=== PATIENT | female | born 1990 | race Caucasian/White ===

== ENCOUNTER 2023-09-28 07:30 | Inpatient (IN) ==
[2023-09-28] MEDS ORDERED: LIDOCAINE 1% LOCAL 20 ML VIAL INFIL PRN (08:23)
[2023-09-28] MEDS ORDERED: OXYTOCIN 30 UNITS/NSS 30 UNITS/500 ML BAG IV PRN ×2 (08:23→18:09)
--- NOTE | 2023-09-28 08:23 | History & Physical Report ---
Date of Service September 28, 2023 Assessment & Plan (1) Encounter for induction of labor: Plan L&D order set placed, including, CBC w/out diff, blood bank hold, IV fluids (LR, 125 mL/hr), and Oxytocin (0.06 U/hr for labor augmentation), and Oxytocin, PRN (20 U/hr, for bleeding). External heart monitor and external tocodynamometer already placed. Patient will consider AROM, balloon catheter, epidural as she progresses. Admission and Anticipated Discharge Date Admission Date: September 28, 2023 History of Present Illness Chief Complaint: induction of labor Primary Care Provider: Malou Archuleta , 41 weeks confirmed via (ultrasound vs. LMP). Here for Induction of Labor. Complications with this include nothing beyond minor concerns of mild swelling and a pruritic, urticarial rash over lower abdomen (likely PUPP rash). Has been attending OB appointments regularly. Currently taking Probiotic (bacillus coagulans-inulin), Complete vitamins, ferrous sulfate, and famotidine. Contractions: yes Fluid or Blood loss: minor blood loss Movement: active Labs - Blood type, B+ - Antibody screen, neg - Hgb, pending - Hct, pending - Wbc, pending - Plt, pending - Rubella, immune - VDRL/RPR, non-reactive - Gonorrhea, not detected - Chlamydia, not detected - HIV, negative and non-reactive - HbSAg, negative - GBS, negative - Glucose tolerance x 2, 107 Allergies Allergy/AdvReac Type Severity Reaction Status Date / Time gluten AdvReac Gastrointestinal Verified 09/27/23 10:32 Upset Home Medications Medication Instructions Recorded Confirmed Type ferrous sulfate 325 mg (65 mg 325 mg PO DAILY 07/20/23 09/28/23 History iron) tablet (Feosol) lactobacillus combination no.4 3 3,000 mmu cells PO DAILY 09/28/23 09/28/23 History billion cell capsule (Probiotic) vits no.124-ferrous fum 1 tab PO DAILY 09/28/23 09/28/23 History 27 mg iron-folic acid 800 mcg tablet ( Vitamin) Past Med/Surg History Problem List (Updated 09/28/23 @ 08:55 by Darci Reich MD) Encounter for induction of labor Encounter for supervision of normal in multigravida Cervical cancer screening Medical History (Updated 09/28/23 @ 08:55 by Darci Reich MD) Spontaneous vaginal delivery Post term over 40 weeks Celiac disease Depression History of chicken pox Eczema Ovarian cyst Surgical History S/P wisdom tooth extraction Family History Father Skin cancer Hypertension Grandmother (Maternal) Heart disease Grandfather (Maternal) Heart disease Mother Hypertension Aunt Ovarian cancer Denies family history of Breast cancer Colorectal cancer Social History (Updated 09/28/23 @ 08:08 by Jessica Galvan, RN) Smoking Status: Never smoker Do You Dip or Chew Tobacco: No; Hx Alcohol Use: No Hx Substance Use: No Preferred Language: Persian Communication Ability: Effective Visual Impairment: No Limitations Hearing Ability: Normal Branch Officer Required: No Beliefs That Will Affect Care: None marital status: marital status details: Jason Bueno [phone] Current Living Situation: Spouse and Family Current Living Situation Comment: lives with , daughter, dog current occupational status: employed 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 Other Information That Helps Us Care for You: No Feels Safe at Home: Yes Safety Concerns: Feels Safe At This Time Childhood Exposure to Second-Hand Smoke: No Diet: gluten free caffeine: Yes (1 coffee/day) Dental Care, Regularly: Yes Gender Identity: Female Assistive Devices: None Review of Systems Constitutional: + fatigue (minor fatigue); no fever, no chills and no body aches Eyes: no diplopia, not seeing flashes and no worsening vision Ear, Nose, Mouth, Throat: + sore throat; no nasal congestion and n o nasal discharge Respiratory: no cough, no chest congestion and no dyspnea Cardiovascular: no chest pain and no palpitations Gastrointestinal: + abdominal pain (normal cramping), + na usea and + change in bowel habits (going more frequently); no vomiting, no constipation and no diarrhea/loose stools Genitourinary: no dysuria, no urinary frequency (nothing more than 3rd trimester steady increase in freq) and no urinary urgency Integumentary: + rash (lower abdominal rash) Neurologic: no tingling, no numbness and no headache(s) Physical Exam Constitutional: WD/WN, vitals as above Respiratory: normal respiratory effort, lungs clear to auscultation Cardiovascular: RRR, no murmur, no edema Extremities: normal capillary refill; no calf tenderness Gastrointestinal (Abdomen): Inspection/Auscultation: normal bowel sounds and + significant pannus (gravid stomach); + abdomen abnormal to inspection (urticarial rash over lower abdomen) external heart monitor and external tocodynamometer placed over gravid uterus Skin: + rash Pruritic rash resembling a PUPP-type rash on entire lower abdomen. Psychiatric: A+Ox3, euthymic affect Genitourinary: OB Exam Monitor Tracing: + external FHT monitor used, + external uterine monitor used (contractions approx 6 min apart), + category I and + normal FHT variability Cervical exam: 3 cm, 75% effaced, -2 station, soft and posterior Results & Data Results & Data Vital Signs (Past 12 Hours) Vital Signs Temp Pulse Resp BP 09/28/23 07:40 36.5 C 70 20 120/65 Supervising Physician Co-Signing Physician Notes Resident Physician Supervision Note: I interviewed and examined the patient. Discussed with Dr. Reich and agree with findings and plan as documented in the note. Any exceptions or clarifications are listed here: who present for postdates iol. essentially uncomplicated. cx favorable. Plan pitocin, arom when indicated. epidural on demand. gbs negative. fetus category one. anticipate . Documented By: Nicky Foley MD, FACOG
--- NOTE | 2023-09-28 08:36 | History & Physical Report ---
Date of Service September 28, 2023 Assessment & Plan Admission and Anticipated Discharge Date Admission Date: September 28, 2023 History of Present Illness Chief Complaint: iol Primary Care Provider: Malou Brittsue Patient is a 32yowf GP who presents for 41 week iol. Allergies Allergy/AdvReac Type Severity Reaction Status Date / Time gluten AdvReac Gastrointestinal Verified 09/27/23 10:32 Upset Home Medications Medication Instructions Recorded Confirmed Type ferrous sulfate 325 mg (65 mg 325 mg PO DAILY 07/20/23 09/28/23 History iron) tablet (Feosol) lactobacillus combination no.4 3 3,000 mmu cells PO DAILY 09/28/23 09/28/23 History billion cell capsule (Probiotic) vits no.124-ferrous fum 1 tab PO DAILY 09/28/23 09/28/23 History 27 mg iron-folic acid 800 mcg tablet ( Vitamin) Patient History Medical History Spontaneous vaginal delivery Post term over 40 weeks Celiac disease Depression History of chicken pox Eczema Ovarian cyst Surgical History S/P wisdom tooth extraction Family History Father Skin cancer Hypertension Grandmother (Maternal) Heart disease Grandfather (Maternal) Heart disease Mother Hypertension Aunt Ovarian cancer Denies family history of Breast cancer Colorectal cancer Social History (Updated 09/28/23 @ 08:08 by Jessica Galvan RN) Smoking Status: Never smoker Do You Dip or Chew Tobacco: No; Hx Alcohol Use: No Hx Substance Use: No Preferred Language: Thai Communication Ability: Effective Visual Impairment: No Limitations Hearing Ability: Normal Internist Medical Doctor Md Required: No Beliefs That Will Affect Care: None marital status: marital status details: Jason Bueno ([phone] Current Living Situation: Spouse and Family Current Living Situation Comment: lives with , daughter, dog current occupational status: employed 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
[2023-09-28] MEDS: LACTATED RINGER'S 1,000 ML IV PRN (08:57)
[2023-09-28 09:02] LABS: Hematocrit (blood only) 34.6 % (37.0-47.0); Hemoglobin 11.3 g/dl (12.0-16.0); Mean Corpuscular Hgb Conc 32.7 g/dL (32.0-36.0); Mean Corpuscular Volume 82.8 fL (80.0-100.0); Mean Platelet Volume 10.8 fL (9.4-12.4); Platelet Count 178 K/uL (130-400); RDW Coefficient of Variation 15.5 % (11.5-14.5); RDW Standard Deviation 46.2 fL (36.4-46.3); Red Blood Count 4.18 M/uL (4.20-5.40); White Blood Count 9.01 K/ul (4.8-10.8)
[2023-09-28] MEDS: OXYTOCIN 30 UNITS/NSS 30 UNITS/500 ML BAG IV PRN (09:05)
[2023-09-28] MEDS ORDERED: ROPIVACAINE 0.5% PF 5 MG/ML 20 ML VIAL EPI PRN (13:36)
[2023-09-28] MEDS ORDERED: SODIUM CHLORIDE 0.9% PF INJ 10 ML VIAL EPI PRN (13:36)
[2023-09-28] MEDS ORDERED: NALOXONE HCL 1 MG in SODIUM CHLORIDE 0.9% 1,000 ML IV PRN (13:36)
[2023-09-28] MEDS ORDERED: NALBUPHINE HCL 5 MG in SYRINGE 0 ML IV PRN (13:36)
[2023-09-28] MEDS ORDERED: diphenhydrAMINE 50 MG/ML VIAL IV PRN (13:36)
[2023-09-28] MEDS ORDERED: NALOXONE HCL 0.4 MG/1 ML VIAL/CARP IV PRN (13:36)
[2023-09-28] MEDS ORDERED: BUPIVACAINE 0.25% PF 30 ML VIAL EPI PRN (13:36)
[2023-09-28] MEDS ORDERED: LIDOCAINE 2% MPF LOCAL 5 ML VIAL EPI PRN (13:36)
[2023-09-28] MEDS ORDERED: PROMETHAZINE HCL 6.25 MG in SODIUM CHLORIDE 0.9% 50 ML IV PRN (13:36)
[2023-09-28] MEDS ORDERED: fentANYL 2 MCG/ML BUPIVacaine 0.125%-NSS 100ML BAG EPI PRN (13:36)
[2023-09-28] MEDS ORDERED: ONDANSETRON INJ 2 MG/ML 2 ML VIAL IV PRN (13:36)
[2023-09-28] MEDS ORDERED: ePHEDrine sulfate 50 MG/ML AMP IV PRN (13:36)
[2023-09-28] MEDS ORDERED: fentaNYL citrate PF 100 MCG/2 ML VIAL EPI PRN (13:36)
[2023-09-28] MEDS: fentANYL 2 MCG/ML BUPIVacaine 0.125%-NSS 100ML BAG ONE (13:54)
[2023-09-28] MEDS: SODIUM CHLORIDE 0.9% PF INJ 10 ML VIAL ONE (13:58)
[2023-09-28] MEDS: BUPIVACAINE 0.25% PF 30 ML VIAL ONE (13:59)
[2023-09-28] MEDS: LIDOCAINE 2%/EPINEPHRINE 1:200,000 20 ML PF ONE (13:59)
[2023-09-28] MEDS: fentaNYL citrate PF 100 MCG/2 ML VIAL ONE (14:42)
--- NOTE | 2023-09-28 14:43 | Labor Progress Brief Note ---
Date of Service September 28, 2023 Subjective some pressure, epidural starting to work Assessment & Plan (1) Encounter for induction of labor: Plan: 32 yo at 41 wga admitted for late term iol VSS Fetus cat 1 Labor - good progress, suspecte srom as only small bag palpated and arom. Continue induction GBS neg epidural in place Admission and Anticipated Discharge Date Admission Date: September 28, 2023 Physical Exam Genitourinary: Manual OB Exam: + cervical dilation 5 cm, + cervical effacement 80%, + station -2 and + amniotic fluid (suspect srom, small forebag ruptured) OB Exam Monitor Tracing: + external FHT monitor used, + external uterine monitor used (q3) and + category I (120/mod/+accel/-decel) Results & Data Vital Signs (Past 12 Hours) Vital Signs Temp Pulse Resp BP Pulse Ox 09/28/23 14:38 100 09/28/23 14:38 72 09/28/23 14:38 117/63 09/28/23 14:33 100 09/28/23 14:33 72 09/28/23 14:28 100 09/28/23 14:28 73 09/28/23 14:23 100 09/28/23 14:23 77 09/28/23 14:23 93/53 L 09/28/23 14:20 98.4 F 20 09/28/23 14:18 100 09/28/23 14:18 81 09/28/23 14:13 100 09/28/23 14:13 93 H 09/28/23 14:08 100 09/28/23 14:08 87 09/28/23 14:08 90 09/28/23 14:08 112/57 L 09/28/23 14:06 106 H 09/28/23 14:06 137/63 09/28/23 14:04 96 H 09/28/23 14:04 99/63 L 09/28/23 14:03 100 09/28/23 14:03 104 H 09/28/23 14:02 73 09/28/23 14:02 98/53 L 09/28/23 14:00 71 09/28/23 14:00 101/55 L 09/28/23 13:58 100 09/28/23 13:58 77 09/28/23 13:58 69 09/28/23 13:58 100/58 L 09/28/23 13:56 83 09/28/23 13:56 100/55 L 09/28/23 13:54 71 09/28/23 13:54 96/54 L 09/28/23 13:53 100 09/28/23 13:53 73 09/28/23 13:52 82 09/28/23 13:52 100/54 L 09/28/23 13:51 74 09/28/23 13:51 92/50 L 09/28/23 13:50 73 09/28/23 13:50 98/49 L 09/28/23 13:48 97 09/28/23 13:48 77 09/28/23 13:43 100 09/28/23 13:43 90 09/28/23 13:16 65 09/28/23 13:16 108/69 09/28/23 12:14 80 09/28/23 12:14 112/69 09/28/23 12:03 98.8 F 20 09/28/23 11:14 71 09/28/23 11:14 112/67 09/28/23 10:15 71 09/28/23 10:15 20 106/62 09/28/23 10:00 76 09/28/23 10:00 16 108/61 09/28/23 09:44 86 09/28/23 09:44 106/58 L 09/28/23 09:29 88 09/28/23 09:29 104/56 L 09/28/23 09:14 73 09/28/23 09:14 113/58 L 09/28/23 07:40 97.7 F 70 20 120/65 Coding Level of Care Code None Diagnoses Encounter for induction of labor Z34.90
[2023-09-28] MEDS ORDERED: HYDROCORTISONE ACETATE 25 MG SUPP PR PRN (18:09)
[2023-09-28] MEDS ORDERED: ACETAMINOPHEN 325 MG TAB PO PRN (18:09)
--- NOTE | 2023-09-28 18:14 | Anesthesiology Progress Note ---
Date of Service September 28, 2023 Anesthesia Post Procedure Vital Signs Vital Signs: Temp Pulse Resp BP Pulse Ox 09/28/23 18:08 100 09/28/23 18:08 91 H 09/28/23 18:03 99 09/28/23 18:03 90 09/28/23 17:58 99 09/28/23 17:58 87 09/28/23 17:53 99 09/28/23 17:53 129 H 09/28/23 17:51 89 L 09/28/23 17:51 88 09/28/23 17:48 100 09/28/23 17:48 92 H 09/28/23 17:43 100 09/28/23 17:43 88 09/28/23 17:40 92 09/28/23 17:40 122 H 09/28/23 17:40 129/62 09/28/23 17:38 100 09/28/23 17:38 105 H 09/28/23 17:33 100 09/28/23 17:33 70 09/28/23 17:28 100 09/28/23 17:28 69 09/28/23 17:25 71 09/28/23 17:25 106/66 09/28/23 17:23 100 09/28/23 17:23 68 09/28/23 17:18 97 09/28/23 17:18 74 09/28/23 17:13 100 09/28/23 17:13 67 09/28/23 17:08 99 09/28/23 17:08 71 09/28/23 17:08 111/63 09/28/23 17:03 100 09/28/23 17:03 84 09/28/23 17:03 91 09/28/23 17:03 80 09/28/23 16:58 100 09/28/23 16:58 72 09/28/23 16:53 100 09/28/23 16:53 67 09/28/23 16:53 70 09/28/23 16:53 93/52 L 09/28/23 16:48 100 09/28/23 16:48 73 09/28/23 16:43 100 09/28/23 16:43 73 09/28/23 16:39 71 09/28/23 16:39 92/54 L 09/28/23 16:38 100 09/28/23 16:38 74 05/17/24 16:33 99 09/28/23 16:33 71 09/28/23 16:28 99 09/28/23 16:28 72 09/28/23 16:23 100 09/28/23 16:23 75 09/28/23 16:23 95/52 L 09/28/23 16:18 100 09/28/23 16:18 81 09/28/23 16:16 36.7 C 09/28/23 16:13 99 09/28/23 16:13 73 09/28/23 16:09 87 L 09/28/23 16:09 80 09/28/23 16:08 99 09/28/23 16:08 82 09/28/23 16:03 99 09/28/23 16:03 123 H 09/28/23 15:58 93 09/28/23 15:58 94 H 09/28/23 15:53 98 09/28/23 15:53 88 09/28/23 15:53 94 09/28/23 15:53 91 H 09/28/23 15:48 97 09/28/23 15:48 98 H 09/28/23 15:48 88 L 09/28/23 15:48 85 09/28/23 15:43 99 09/28/23 15:43 81 09/28/23 15:42 91 09/28/23 15:42 98 H 09/28/23 15:38 82 L 09/28/23 15:38 95 H 09/28/23 15:36 83 L 09/28/23 15:36 106 H 09/28/23 15:33 99 09/28/23 15:33 95 H 09/28/23 15:28 100 09/28/23 15:28 76 09/28/23 15:24 87 09/28/23 15:24 124/59 L 09/28/23 15:23 100 09/28/23 15:23 78 09/28/23 15:18 100 09/28/23 15:18 76 09/28/23 15:17 36.6 C 20 09/28/23 15:13 100 09/28/23 15:13 85 09/28/23 15:09 80 09/28/23 15:09 105/67 09/28/23 15:08 100 09/28/23 15:08 81 09/28/23 15:03 100 09/28/23 15:03 82 09/28/23 14:58 100 09/28/23 14:58 72 09/28/23 14:53 100 09/28/23 14:53 78 09/28/23 14:53 122/63 09/28/23 14:48 100 09/28/23 14:48 82 09/28/23 14:43 100 09/28/23 14:43 71 09/28/23 14:38 100 09/28/23 14:38 72 09/28/23 14:38 117/63 09/28/23 14:33 100 09/28/23 14:33 72 09/28/23 14:28 100 09/28/23 14:28 73 09/28/23 14:23 100 09/28/23 14:23 77 09/28/23 14:23 93/53 L 09/28/23 14:20 36.9 C 20 09/28/23 14:18 100 09/28/23 14:18 81 09/28/23 14:13 100 09/28/23 14:13 93 H 09/28/23 14:08 100 09/28/23 14:08 87 09/28/23 14:08 90 09/28/23 14:08 112/57 L 09/28/23 14:06 106 H 09/28/23 14:06 137/63 09/28/23 14:04 96 H 09/28/23 14:04 99/63 L 09/28/23 14:03 100 09/28/23 14:03 104 H 09/28/23 14:02 73 09/28/23 14:02 98/53 L 09/28/23 14:00 71 09/28/23 14:00 101/55 L 09/28/23 13:58 100 09/28/23 13:58 77 09/28/23 13:58 69 09/28/23 13:58 100/58 L 09/28/23 13:56 83 09/28/23 13:56 100/55 L 09/28/23 13:54 71 09/28/23 13:54 96/54 L 09/28/23 13:53 100 09/28/23 13:53 73 09/28/23 13:52 82 09/28/23 13:52 100/54 L 09/28/23 13:51 74 09/28/23 13:51 92/50 L 09/28/23 13:50 73 09/28/23 13:50 98/49 L 09/28/23 13:48 97 09/28/23 13:48 77 09/28/23 13:43 100 09/28/23 13:43 90 09/28/23 13:16 65 09/28/23 13:16 108/69 09/28/23 12:14 80 09/28/23 12:14 112/69 09/28/23 12:03 37.1 C 20 09/28/23 11:14 71 09/28/23 11:14 112/67 09/28/23 10:15 71 09/28/23 10:15 20 106/62 09/28/23 10:00 76 09/28/23 10:00 16 108/61 09/28/23 09:44 86 09/28/23 09:44 106/58 L 09/28/23 09:29 88 09/28/23 09:29 104/56 L 09/28/23 09:14 73 09/28/23 09:14 113/58 L 09/28/23 07:40 36.5 C 70 20 120/65 Pain Intensity Abdomen: Pain Intensity: 3 Transfer of Care Handoff Completed per policy Notes Mental Status: alert / awake / arousable and participated in evaluation Patient Amnestic to Procedure: No Nausea / Vomiting: adequately controlled Pain: adequately controlled Airway Patency, RR, SpO2: stable & adequate BP & HR: stable & adequate Hydration State: stable & adequate Neuraxial Anesthesia: was administered and sensory block is resolving Anesthetic Complications: no major complications apparent and Pt Satisfied with anesthetic care
--- NOTE | 2023-09-28 18:15 | Delivery Summary ---
Vaginal Delivery Summary Date of Service September 28, 2023 Vaginal Delivery Summary and 2nd Degree LAC PREOPERATIVE DIAGNOSIS: 1. Single intrauterine at 41 wga 2. Late term IOL POSTOPERATIVE DIAGNOSIS: 1. Single intrauterine at 41 wga 2. Late term IOL 3. Delivered PROCEDURE: 1. Normal spontaneous vaginal delivery. SURGEON: Kerry Simon MD ANESTHESIA: Epidural. QUANTITATIVE BLOOD LOSS: 102 mL FLUIDS: Continuous LR. URINE OUTPUT: Not measured COMPLICATIONS: None. CONDITION: Stable. INDICATIONS: 32 yo at 41 wga presented for late term IOL. She was 3cm on arrival and started on pitocin. She received an epidural for pain control. She was suspected to srom but a forebag was artifically ruptured and she continued to progress to complete and desired to push. FINDINGS: A viable male , weight pending with Apgars of 8 and 9 at 1 and 5 minutes respectively. SPECIMEN: Cord blood OPERATIVE REPORT: The patient progressed to 10 cm, 100% effaced and +2 station, pushed over intact perineum with anesthesia to deliver a viable male infant, weight and Apgars as above. Head of delivered in ADAMS position. No nuchal cord was present. Body and shoulders were delivered without difficulty. was delivered to maternal abdomen and nursing staff. Delayed cord clamping was performed for 60 seconds. Cord was clamped and cut. Cord blood was obtained. Placenta delivered spontaneously intact with 3-vessel cord. IV oxytocin and f undal massage were given for excellent hemostasis. Vagina, cervix, perineum, and placenta were inspected. A second degree laceration was noted and repaired with 3-0 vicryl. There was excellent hemostasis. Sponge and needle counts correct x2. No sponges were left behind. Mother and stable in immediate period. [facility] [place] [facility] [place] Vaginal Delivery Codes: 77793 global code for the antepartum, delivery, and post- Delivery Type Details: and 2nd Degree LAC
[2023-09-28] MEDS: BUPIVACAINE 0.25% PF 30 ML VIAL EPI STA (19:24)
[2023-09-28] MEDS: fentaNYL citrate PF 100 MCG/2 ML VIAL EPI STA (19:24)
[2023-09-28] MEDS: ePHEDrine sulfate 50 MG/ML AMP ONE (19:24)
[2023-09-28] MEDS: SODIUM CHLORIDE 0.9% PF INJ 10 ML VIAL EPI STA (19:25)
[2023-09-28] MEDS: LIDOCAINE 2%/EPINEPHRINE 1:200,000 20 ML PF EPI STA (19:25)
[2023-09-28] MEDS: DIPHTHER/TETAN/PERTUS Vaccine (Tdap, Adol/Adult) 0.5mL IM ONE (19:26)
[2023-09-28] MEDS: BENZOCAINE 20% SPRY 85 APPLN/85 GM CAN EXT PRN (20:02)
[2023-09-28] MEDS: IBUPROFEN 600 MG TAB PO PRN (20:03)
[2023-09-28] MEDS: DOCUSATE SODIUM 100 MG CAP PO SCH (20:03)
[2023-09-28] MEDS ORDERED: Nursing to Pharmacy Communication SCH (21:00)
[2023-09-28] MEDS: IBUPROFEN 200 MG/10 ML UDC PO PRN (21:48)
--- NOTE | 2023-09-29 06:09 | Obstetrical Progress Note ---
Date of Service <Darci Reich MD - Last Filed: 09/29/23 07:32> September 29, 2023 Assessment & Plan <Darci Reich MD - Last Filed: 09/29/23 07:32> (1) (normal spontaneous vaginal delivery): Plan 32 yo , status post on 09/28/23. - Pt doing well clinically. Feels well today. Eating well, unable to void w/out Pierce, ambulating well. Pain well controlled with PRN pain meds. Will remove Pierce again later today to see if pt can void independently. - Routine care -- OOB, ambulation, diet progression as tolerated Vital Signs reviewed and WNL, (Tmax at 36.9), with exception of slight tachyca rdia few hours after delivery (HR as high as 100). Clobetasol propionate cream ordered for pt's PUPPP rash and prescribed for 2 wks as outpt (1 karen, BID, 2 wks, PRN) Hemoglobin Reviewed. 11.3 (09/27). Blood Type: B+, GBS-, Rubella Immune. Encourage ambulation, monitor and control pain with Motrin PRN, resume regular diet, monitor lochia. Breast feeding encouraged. After discharge will have 6 week follow-up with Dr. Simon. Pt counselled on discharge instructions, in the event they're planning on going home today. <Kerry Simon MD - Last Filed: 09/29/23 09:21> (1) (normal spontaneous vaginal delivery): Subjective <Darci Reich MD - Last Filed: 09/29/23 07:32> Ambulation: ambulating normally Voiding: pierce catheter in place Passing Gas:: Yes Diet Tolerance:: regular diet Lochia:: Moderate Feeding Type:: bottle feeding Current Pain Level(1-10): 4 (cramping pain in abdomen) Constitutional: + fatigue (minor fatigue); no fever, no chills or no body aches Eyes: no diplopia, no seeing flashes or no worsening vision Ear, Nose, Mouth, Throat: + sore throat; no nasal congestion or no nasal discharge Respiratory: no cough, no chest congestion or no dyspnea Cardiovascular: no chest pain or no palpitations Gastrointestinal: + abdominal pain (normal cramping); no nausea, no vomiting, no constipation or no diarrhea/loose stools Genitourinary (female): no dysuria, no urinary frequency (nothing more than 3rd trimester steady increase in freq) or no urinary urgency Integumentary: + rash (lower abdominal rash) Neurologic: no tingling, no numbness or no headache(s) Physical Exam <Darci Reich MD - Last Filed: 09/29/23 07:32> Constitutional WD/WN, vitals as above Respiratory normal respiratory effort, lungs clear to auscultation Cardiovascular RRR, no murmur, no edema Extremities: normal capillary refill; no calf tenderness Gastrointestinal (Abdomen) Inspection/Auscultation: normal bowel sounds and + significant pannus (gravid stomach); + abdomen abnormal to inspection (urticarial rash over lower abdomen) Skin + rash Psychiatric A+Ox3, euthymic affect Results & Data <Darci Reich MD - Last Filed: 09/29/23 07:32> Vital Signs (Past 12 Hours) Vital Signs Temp Pulse Pulse Resp BP BP Pulse Ox 09/29/23 03:20 36.8 C 68 18 111/72 99 09/28/23 23:31 36.6 C 71 18 100/65 97 09/28/23 21:00 36.9 C 90 18 121/72 98 09/28/23 20:24 100 H 09/28/23 20:24 127/62 09/28/23 19:53 94 H 09/28/23 19:53 104/74 09/28/23 19:38 85 09/28/23 19:38 110/70 09/28/23 19:23 74 09/28/23 19:23 104/62 09/28/23 19:08 73 09/28/23 19:08 113/60 09/28/23 18:53 68 09/28/23 18:53 105/59 L 09/28/23 18:50 20 09/28/23 18:41 93 09/28/23 18:41 76 09/28/23 18:38 98 09/28/23 18:38 76 09/28/23 18:38 77 09/28/23 18:38 120/56 L 09/28/23 18:35 20 09/28/23 18:33 100 09/28/23 18:33 70 09/28/23 18:28 100 09/28/23 18:28 76 09/28/23 18:23 100 09/28/23 18:23 86 09/28/23 18:23 120/60 09/28/23 18:20 36.9 C 20 09/28/23 18:20 84 09/28/23 18:20 117/58 L 09/28/23 18:18 100 09/28/23 18:18 83 09/28/23 18:13 94 09/28/23 18:13 98 H O2 Del Method 09/29/23 03:20 Room Air 09/28/23 23:31 Room Air 09/28/23 21:00 Room Air 09/28/23 20:24 09/28/23 20:24 09/28/23 19:53 09/28/23 19:53 09/28/23 19:38 09/28/23 19:38 09/28/23 19:23 09/28/23 19:23 09/28/23 19:08 09/28/23 19:08 09/28/23 18:53 09/28/23 18:53 09/28/23 18:50 09/28/23 18:41 09/28/23 18:41 09/28/23 18:38 09/28/23 18:38 09/28/23 18:38 09/28/23 18:38 09/28/23 18:35 09/28/23 18:33 09/28/23 18:33 09/28/23 18:28 09/28/23 18:28 09/28/23 18:23 09/28/23 18:23 09/28/23 18:23 09/28/23 18:20 09/28/23 18:20 09/28/23 18:20 09/28/23 18:18 09/28/23 18:18 09/28/23 18:13 09/28/23 18:13 Supervising Physician <Kerry Simon MD - Last Filed: 09/29/23 09:21> Co-Signing Physician Notes Resident Physician Supervision Note: I interviewed and examined the patient. Discussed with Dr. Reich and agree with findings and plan as documented in the note. Any exceptions or clarifications are listed here: PP1 s/p . Had urinary retention overnight so pierce placed, will remove this pm and trial void. Desires dc tomorrow Documented By: Kerry Simon MD
[2023-09-29 06:58] LABS: Hematocrit (blood only) 32.7 % (37.0-47.0); Hemoglobin 10.5 g/dl (12.0-16.0); Mean Corpuscular Hemoglobin 27.1 pg (25.0-34.0); Mean Corpuscular Hgb Conc 32.1 g/dL (32.0-36.0); Mean Corpuscular Volume 84.3 fL (80.0-100.0); Mean Platelet Volume 10.8 fL (9.4-12.4); Platelet Count 157 K/uL (130-400); RDW Coefficient of Variation 15.7 % (11.5-14.5); RDW Standard Deviation 47.3 fL (36.4-46.3); Red Blood Count 3.88 M/uL (4.20-5.40)
[2023-09-29] MEDS ORDERED: CLOBETASOL PROPIONATE 0.05% CREAM 15 GM TUBE EXT PRN (07:17)
[2023-09-29] MEDS: FERROUS SULFATE 325 MG TAB PO SCH (08:53)
[2023-09-29] MEDS: PRENATAL VITAMIN 1 TAB PO SCH (08:53)
[2023-09-29] MEDS ORDERED: HYDROCORTISONE 1% CRM 30 GM TUBE EXT PRN (17:14)
[2023-09-30 06:46] LABS: Hematocrit (blood only) 31.9 % (37.0-47.0); Hemoglobin 10.1 g/dl (12.0-16.0)
--- NOTE | 2023-09-30 07:21 | Obstetrical Progress Note ---
Date of Service September 30, 2023 Assessment & Plan (1) (normal spontaneous vaginal delivery): Plan Doing well. Plan d/c home. Instructions reviewed. Day #:: 2 Subjective Ambulation: ambulating normally Voiding: no voiding problems Passing Gas:: Yes Diet Tolerance:: regular diet Lochia:: Small Feeding Type:: bottle feeding Physical Exam Constitutional WD/WN, vitals as above Cardiovascular Extremities: no calf tenderness and no edema Gastrointestinal (Abdomen) soft, nt, nd, ff/nt at u Psychiatric A+Ox3, euthymic affect Results & Data Vital Signs (Past 12 Hours) Vital Signs Temp Pulse Resp BP Pulse Ox O2 Del Method 09/29/23 22:54 36.6 C 72 16 103/68 99 Room Air
--- NOTE | 2023-10-01 05:47 | Coding Query ---
LENGTH OF LACERATION To promote full compliance with coding requirements relating to patient care, physician participation is requested in all cases of spark plug assembler uncertainty. Please assist us with the question(s) below: Can you please specify the site of the patient's laceration? perineal Per documentation, "A second degree laceration was noted and repaired with 3-0 vicryl." Thank you Gabby RIOS
== END 2023-09-30 12:50 | disposition home or self-care (01) | DRG 807 ==
LOC: 4S1 07:30 → 4E2 21:02